=== PATIENT | male | born 1990 | race Caucasian/White ===

== ENCOUNTER 2024-08-06 09:48 | Day surgery (SDC) | payer OTHER, SELFPAY ==
[2024-08-06] VITALS (9 sets, daily range): BP systolic 122–154; BP diastolic 71–112; PULSE 54–75; RESP 12–16; TEMP 36.4–36.9; O2SAT 92–99; BMI 32.4
[2024-08-06] MEDS: Cefazolin 2 GM in 0.9% Normal Saline (100mL Bag) 100 ML IV (01:15)
--- NOTE | 2024-08-06 10:00 | RAD_ITS ---
EXAM: XR Abdomen, 1 View CLINICAL INDICATION: PRE OP TECHNIQUE: Frontal supine view of the abdomen/pelvis. COMPARISON: No relevant prior studies available. FINDINGS: GASTROINTESTINAL TRACT: Unremarkable. No dilation. ORGANS: 1.8 cm calculus projects over the left kidney region. BONES/JOINTS: Unremarkable. No acute fracture. RAD/Abdomen Single View IMPRESSION: Left nephrolithiasis. Reading Location: [id number]
[2024-08-06] MEDS: Lactated Ringers 1,000 ML 15 ML IV (10:50)
--- NOTE | 2024-08-06 11:06 | PCM.PRE.AN2 ---
ASA Classification* ASA Classification ASA Classification: 2 Assessment & Plan Anesthesia* Anesthesia Assessment Anesthesia Assessment: Discussed sedation and/or anesthesia options, risks, benefits, and alternatives with patient/parents/legal guardian/POA. Questions invited. The patient/parents/legal guardian/POA seems to understand and agrees to proceed with anesthesia plan. Reviewed the physical assessment, medical history, allergy history and patient home medications list prior to surgery/procedure/anesthetic and documented any changes. Performed airway and anesthesia risk assessments. 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 When Was Last Pacemaker Check QUESTION #4 FULL TEXT: You/Your Family Experience fever (hyperthermia) with Anesthesia Last Oral Intake Last Oral intake: Last Oral Intake NPO since 00:00 08/06/24 10:27 Meds taken in AM with sips of No 08/06/24 10:27 water? Meds patient instructed to take am of surgery PONV PONV - funeral home associate: PONV - funeral home associate Female No 08/03/24 14:13 HX of Motion Sickness No 08/03/24 14:13 HX of N/V After Surgery No 08/03/24 14:13 Non-Smoker Yes 08/03/24 14:13 Duration of Surgery greater No 08/03/24 14:13 than 60 minutes Number of Risk Factors 1 08/03/24 14:13 PONV Score Low Risk 08/03/24 14:13 Height & Weight Height & Weight: Anesthesia: Height & Weight Height 6 ft 08/06/24 10:27 Weight: 108.5 kg 08/06/24 10:27 Body Mass Index (BMI) 32.4 08/06/24 10:27 Respiratory Assessment Respiratory Assessment - funeral home associate: Respiratory Tract Infection Hx - funeral home associate Hx Respiratory Tract Infection No 08/03/24 14:13 STOP Sleep Apnea STOP Sleep Apnea - funeral home associate: STOP Sleep Apnea - funeral home associate Hx Hypertension No 08/03/24 14:13 Hx Sleep Apnea No 08/03/24 14:13 CPAP BIPAP Do you snore loudly (louder Yes 08/03/24 14:13 than talking or can be heard Do you often feel tired/ No 08/03/24 14:13 fatigued/ sleepy during daytime? Has anyone observed you stop Yes 08/03/24 14:13 breathing during sleep? STOP Results Positive 08/03/24 14:13 QUESTION #5 FULL TEXT : Do you snore loudly (louder than talking or can be heard through closed doors)? Tobacco Use History Tobacco Use History - funeral home associate: Tobacco Use History - funeral home associate Tobacco Use Smoking Status Never smoker 08/03/24 14:13 Hx Tobacco Use No 08/03/24 14:13 Years Smoking Packs Smoked per Day Smoking Cessation Date was within the last 15 years Hx Smoking Cessation Date Hx Smoking Cessation Counseling Hematologic Medial History Hematologic Hx - funeral home associate: Hematologic Medical Hx - billing coordinator Hx of Blood Transfusion No 08/03/24 14:13 Hx of Transfusion in last 3 No 08/03/24 14:13 Months Date of Last Transfusion (if within last 3 months) Ever experience any problems No 08/03/24 14:13 with transfusion(s)? Specify any problems Hx of Preganancy in last 3 N/A 08/03/24 14:13 Months Nurse Filling Out Transfusion VCHRISTIN 08/03/24 14:13 & Questions: Date: 08/03/24 08/03/24 14:13 Time: 14:14 08/03/24 14:13 Patient unable to answer at this time (ie. confused, unrespo /Reproduction History /Reproductive History - funeral home associate: /Reproductive Hx- funeral home associate Hx Now Gestational Age (in weeks): EDC: Hx Hx Para Hx Section SAB Active Medications Active Medications: Current Medications Generic Name Dose Route Start Last Admin Trade Name Freq PRN Reason Stop Dose Admin Cefazolin Sodium 2 gm/ Sodium 110 mls @ 150 mls/hr 08/06/24 14:35 Chloride IV 08/06/24 15:18 INTRAOP ONE Lactated Ringer's 1,000 mls @ 15 mls/hr 08/06/24 11:00 08/06/24 10:50 IV 15 mls/hr .Q48H DARRYL Administration PFSH Medical History Wears glasses Kidney stones Non-smoker History of edema Home Medications ?Medication ?Instructions ?Recorded ?Last Taken ?Type NK 08/03/24 Unknown History Allergy/AdvReac Type Severity Reaction Status Date / Time No Known Allergies Allergy Verified 08/06/24 10:26 Social History Smoking Status: Never smoker Review of Systems (Anesthesia) ROS Narrative System reviewed and no additional complaints, except as documented. Physical Exam Const alert and oriented x3 HEENT dentition normal Neck full ROM Resp normal respiratory effort Cardio regular rate Neuro oriented x3
--- NOTE | 2024-08-06 12:53 | DCINST_ITS ---
Discharge Instructions Diet Discharge Diet: No restrictions DC O2, CPAP, BIPAP needs Home O2 Discharge instructions: No Dressing / Incision Discharge Activity: Return to Normal Activity and May Not Drive (while taking narcotic pain medications.) Dressing / Incision Call your doctor if you observe: Fever of 101 or Higher Follow Up Care Please Follow Up With: Joseph Page MD When: Call [phone] for an appointment Test Results: Test results from this visit will be discussed in further detail at your follow- up appointment, if applicable. Discharge Plan Admission Primary Reason for Your Visit: laser stone Attending Provider: Joseph Page Primary Care Provider: Nuris Butler Instructions Print Language: Citizen Of [place] Discharge Orders/Prescriptions Prescriptions: New ibuprofen 600 mg tablet 600 mg PO Q6H PRN (Reason: pain) Qty: 20 0RF acetaminophen 500 mg capsule 500 mg PO Q4H PRN (Reason: pain) Qty: 20 0RF phenazopyridine [Pyridium] 100 mg tablet 100 mg PO TID Qty: 20 0RF tamsulosin [Flomax] 0.4 mg capsule 0.4 mg PO DAILY Qty: 10 0RF Referrals / Follow Up: Joseph Page MD [Med Staff - Active Staff] - Nuris Butler, HOSPITAL DIRECTOR-C [Primary Care Provider] - Disposition Disposition (needs filled in before D/C Order can be placed): Home, Self Care
--- NOTE | 2024-08-06 12:53 | OP.PCM_ITS ---
Operative Report (Standard) Operative Information Date of Procedure: 08/06/24 Pre-Operative Diagnosis: Large left kidney stone Post-Operative Diagnosis: The same Surgery/Procedure Performed: Cystoscopy left ureteroscopy laser lithotripsy of stone, no stent stock taker: No Type of Anesthesia: General RN Documented Start/Stop Times: Operation Date: 08/06/24 11:45 Case Time Into Pre-Op 08/06/24 09:58 Out of Pre-Op 08/06/24 11:46 Anesthesia Start 08/06/24 11:48 Into Room 08/06/24 11:48 Procedure Start 08/06/24 12:01 Procedure End 08/06/24 12:50 Procedure Start Time: 12:01 Procedure Stop Time: 12:54 Select all DRAINS/GRAFTS/IMPLANTS that apply: None Estimated Blood Loss: None Specimen collected: No Description of surgery: Patient was taken back to the operating room after smooth induction of anesthesia he was placed in dorsolithotomy position. The penis testicles were prepped and draped in usual sterile fashion went into the bladder with a 21 [place] rigid cystourethroscope identified the left ureteral orifice put a wire up the orifice and then over the wire went in with the flexible ureteroscope was able to get up the ureter quite easily I then reached the renal pelvis and there identified a large about 1.5 cm stone. I then proceeded with laser lithotripsy using 150 ?m laser fiber the thulium laser and the stone was lasered completely into dust took about 40 minutes to laser the stone completely by the at the end it was just a bunch of dust fragments no major fragments were seen inspected upper pole midpole lower pole no major fragments seen whole bunch of just the dust particles. That should pass on their own. After lasering the stone completely I worked my way down the ureter no fragments along the course of the ureter I then came out of the ureter and the ureter was draining well I then drained the bladder patient has removed the flexible ureteroscope and drained the bladder with a 12 Gibraltarian catheter and then the patient anesthetic was reversed he is taken back to the PACU in good condition and follow-up in 4 weeks for checkup. Surgical Findings: Large stone in the left kidney lasered completely into dust Complications Complications: No Admit VTE Documentation VTE Present on Admission: No VTE Mechan Device Prophylaxis: SCD's VTE Pharm Prophylaxis ordered?: No
--- NOTE | 2024-08-06 12:53 | PCM.HP.STD ---
HPI - General General Date of Service: 08/06/24 Chief Complaint: Large left kidney stone HPI Narrative DIOGO CARRION, is a 34 M who presents with a large stone in the left kidney plan to do laser lithotripsy and treatment of the stone [facility] Medical History Wears glasses Kidney stones Non-smoker History of edema Home Medications ?Medication ?Instructions ?Recorded ?Last Taken ?Type acetaminophen 500 mg capsule 500 mg PO Q4H PRN pain #20 caps 08/06/24 Unknown Rx ibuprofen 600 mg tablet 600 mg PO Q6H PRN pain #20 tabs 08/06/24 Unknown Rx phenazopyridine 100 mg tablet 100 mg PO TID #20 tabs 08/06/24 Unknown Rx (Pyridium) tamsulosin 0.4 mg capsule (Flomax) 0.4 mg PO DAILY #10 caps 08/06/24 Unknown Rx Allergy/AdvReac Type Severity Reaction Status Date / Time No Known Allergies Allergy Verified 08/06/24 10:26 Social History Smoking Status: Never smoker Vital Signs Vital Signs Vital Signs: 08/06/24 10:27 08/06/24 10:27 08/06/24 11:07 Temperature 98.4 F 98.4 F Temperature Source Temporal Pulse Rate 75 75 Respiratory Rate 16 16 Respiratory Pattern Normal Blood Pressure 135/98 H 135/98 H Blood Pressure Mean 110 Blood Pressure Source Monitor Blood Pressure Position Semi-Fowlers Blood Pressure Location Right Arm Pulse Ox 99 99 Oxygen Delivery Method Room Air Room Air Weight Weight: 108.5 kg Body Mass Index (BMI) 32.4
--- NOTE | 2024-08-06 13:04 | PCM.POST.ANE ---
Anesthesia: Postop Eval I Current Vital Signs Temperature: 97.8 F Pulse Rate: 68 Blood Pressure: 154/112 Respiratory Rate: 12 Pulse Ox: 94 Oxygen Delivery Method: Room Air Assessment Airway patent: Yes Spontaneous unlabored respirations: Yes Mental status: Awake and Calm nausea: No Vomiting: No Anesthesia Complication: No Fluid Hydration Crystalloid volume administer (ml): 800 Total IV fluid infused: 800 Progress Note Anesthesia document: Postop Eval 1 completed: Yes
[2024-08-06] MEDS: Ketorolac 15 MG/ML Vial IV (13:38)
--- NOTE | 2024-08-06 14:44 | POSTOPAN2_ITS ---
Anesthesia Postop Eval I Sum Postop Eval Completion status Anesthesia document: Postop Eval 1 completed: Yes Anesthesia Postop Eval I Summary Anesthesia Postop Eval I Summary: Anesthesia Postop Eval I: Assessment Summary Airway patent Yes 08/06/24 13:05 DIRECTOR [email or web address] Spontaneous unlabored Yes 08/06/24 13:05 DIRECTOR [email or web address] respirations Mental status Awake,Calm 08/06/24 13:05 DIRECTOR [email or web address] nausea No 08/06/24 13:05 DIRECTOR [email or web address] Vomiting No 08/06/24 13:05 DIRECTOR [email or web address] Anesthesia Postop Eval I: Fluid Summary Crystalloid volume administer 800 08/06/24 13:05 DIRECTOR [email or web address] (ml) Colloids volume administered ( ml) Blood Product volume administered (ml) Total IV fluid infused 800 08/06/24 13:05 DIRECTOR [email or web address] Anesthesia Postop Eval I: Summary Notes Anesthesia Complication No 08/06/24 13:05 DIRECTOR [email or web address] Anesthesia Complication Comment: Post-operative progress note Anesthesia: Postop Eval II Evaluation Mental status: Awake and Calm Pain Level: 3 nausea: No Vomiting: No
--- NOTE | 2024-08-06 14:44 | PCM.POSTANE2 ---
Anesthesia Postop Eval I Sum Postop Eval Completion status Anesthesia document: Postop Eval 1 completed: Yes Anesthesia Postop Eval I Summary Anesthesia Postop Eval I Summary: Anesthesia Postop Eval I: Assessment Summary Airway patent Yes 08/06/24 13:05 [email or web address] Spontaneous unlabored Yes 08/06/24 13:05 COMMERCIAL [email or web address] respirations Mental status Awake,Calm 08/06/24 13:05 COMMERCIAL [email or web address] nausea No 08/06/24 13:05 COMMERCIAL [email or web address] Vomiting No 08/06/24 13:05 [email or web address] Anesthesia Postop Eval I: Fluid Summary Crystalloid volume administer 800 08/06/24 13:05 [email or web address] (ml) Colloids volume administered ( ml) Blood Product volume administered (ml) Total IV fluid infused 800 08/06/24 13:05 [email or web address] Anesthesia Postop Eval I: Summary Notes Anesthesia Complication No 08/06/24 13:05 [email or web address] Anesthesia Complication Comment: Post-operative progress note Anesthesia: Postop Eval II Evaluation Mental status: Awake and Calm Pain Level: 3 nausea: No Vomiting: No
[2024-08-06] MEDS: Ondansetron ODT 4 MG Tablet PO (15:01)
== END 2024-08-06 15:06 | disposition home or self-care (01) ==
LOC: SDC 09:50 → AC 09:51
PROVIDERS: PCP Nurse Practitioner Family; Referring Provider Urology; Visit Provider Urology
PROC: 0TJ98ZZ Inspection of Ureter, Via Natural or Artificial Opening Endoscopic (ICD-10-PCS; CPT 52352; principal; 2024-08-06 11:35)
DX: N20.0 Calculus of kidney (principal); Z87.442 Personal history of urinary calculi
CPT/HCPCS: 52353; 00918; 74018; C1769; J2405